=== PATIENT | male | born 1955 | race Two or more races ===

== ENCOUNTER → 2023-10-21 | Outpatient (REF) | payer MEDICARE | LOC: M SFHCDERM 13:03 | PROVIDERS: ATTEND Physician Assistant | DX: L82.1 Other seborrheic keratosis (principal) ==

== ENCOUNTER → 2023-11-05 | Outpatient (REF) | payer MEDICARE | LOC: M LAB REF 15:55 | PROVIDERS: ATTEND Surgery | DX: D17.21 Benign lipomatous neoplasm of skin and subcutaneous tissue of right arm (principal) ==

== ENCOUNTER → 2023-12-15 | Outpatient (REF) | payer MEDICARE | LOC: M LAB REF 15:11 | PROVIDERS: ATTEND Surgery | DX: D17.21 Benign lipomatous neoplasm of skin and subcutaneous tissue of right arm (principal) ==

== ENCOUNTER → 2024-04-13 | Outpatient (CLI) | payer MEDICARE ==
[~2024-04-13] MED LIST: PERC5TAB12 PO
== END ==
LOC: M RAD 16:07
PROVIDERS: ATTEND Physician Assistant
DX: M25.532 Pain in left wrist (principal); M79.645 Pain in left finger(s); S52.572A Other intraarticular fracture of lower end of left radius, initial encounter for closed fracture; S62.355A Nondisplaced fracture of shaft of fourth metacarpal bone, left hand, initial encounter for closed fracture; S62.353A Nondisplaced fracture of shaft of third metacarpal bone, left hand, initial encounter for closed fracture; X58.XXXS Exposure to other specified factors, sequela; Y92.9 Unspecified place or not applicable; Y93.9 Activity, unspecified; Y99.9 Unspecified external cause status

== ENCOUNTER → 2024-04-13 | Outpatient (CLI) | payer MEDICARE | LOC: M SOG 11:57 | PROVIDERS: ATTEND Physician Assistant | DX: M25.562 Pain in left knee (principal); M79.645 Pain in left finger(s); S52.512A Displaced fracture of left radial styloid process, initial encounter for closed fracture; S62.353A Nondisplaced fracture of shaft of third metacarpal bone, left hand, initial encounter for closed fracture; S62.355A Nondisplaced fracture of shaft of fourth metacarpal bone, left hand, initial encounter for closed fracture; X58.XXXA Exposure to other specified factors, initial encounter; Y92.9 Unspecified place or not applicable; Y93.9 Activity, unspecified; Y99.9 Unspecified external cause status; S52.572A Other intraarticular fracture of lower end of left radius, initial encounter for closed fracture ==

== ENCOUNTER → 2024-04-17 | Day surgery (SDC) | payer MEDICARE ==
[~2024-04-17] VITALS: Ht 182.9 cm; Wt 65.2 kg
[~2024-04-17] MED LIST changes: +ACETAMINOPHEN 1000MG 100ML IV BAG As Ordered ONE; +LIDOCAINE 2% 100MG/5ML SDV (FOR ANES.) As Ordered ONE; +MIDAZOLAM INJ 2MG/2ML VIAL As Ordered ONE; +MIDAZOLAM INJ 2MG/2ML VIAL IV PRN; +fentaNYL 100 MCG/2 ML INJECTION As Ordered ONE; +fentaNYL 100 MCG/2 ML INJECTION IV PRN; +propofoL 200 MG/20 ML VIAL As Ordered ONE
[2024-04-17] MEDS: ROPIvacaine 0.5% 30ML VIAL PN ONE (12:15)
[2024-04-17] MEDS: dexAMETHasone 10MG/1ML VIAL PRES.FREE PN ONE (12:15)
[2024-04-17] MEDS: EPINEPHrine INJ 1 MG/ML 1ML AMP PN ONE (12:15)
[2024-04-17] MEDS: LIDOCAINE 1% SDV 5ML VIAL PN ONE (12:15)
[2024-04-17] MEDS: MIDAZOLAM INJ 2MG/2ML VIAL IV PRN (12:59)
[2024-04-17] MEDS: fentaNYL 100 MCG/2 ML INJECTION IV PRN (12:59)
[2024-04-17] MEDS: ceFAZolin SOD 2 GM in IV 1 EA IV ONE (14:00)
[2024-04-17] MEDS: BACITRACIN OINTMENT 30GM TUBE As Ordered ONE (15:50)
[2024-04-17 17:12] VITALS: TEMP 98.2
[2024-04-17 17:20] VITALS: BP 113/70; O2SAT 96
== END | disposition home or self-care (01) ==
LOC: M SDC 11:12
PROVIDERS: ATTEND Orthopaedic Surgery Hand Surgery
DX: S52.572A Other intraarticular fracture of lower end of left radius, initial encounter for closed fracture (principal); S62.303A Unspecified fracture of third metacarpal bone, left hand, initial encounter for closed fracture; S62.305A Unspecified fracture of fourth metacarpal bone, left hand, initial encounter for closed fracture; W11.XXXA Fall on and from ladder, initial encounter; Y92.89 Other specified places as the place of occurrence of the external cause; Y93.9 Activity, unspecified; Y99.9 Unspecified external cause status
CPT/HCPCS: 25609; 76000; 93005; C1713; J0131; J0690; J2250; J3010

== ENCOUNTER → 2024-04-25 | Outpatient (CLI) | payer MEDICARE ==
[~2024-04-25] MED LIST changes: -ACETAMINOPHEN 1000MG 100ML IV BAG As Ordered ONE; -LIDOCAINE 2% 100MG/5ML SDV (FOR ANES.) As Ordered ONE; -MIDAZOLAM INJ 2MG/2ML VIAL As Ordered ONE; -MIDAZOLAM INJ 2MG/2ML VIAL IV PRN; -fentaNYL 100 MCG/2 ML INJECTION As Ordered ONE; -fentaNYL 100 MCG/2 ML INJECTION IV PRN; -propofoL 200 MG/20 ML VIAL As Ordered ONE
== END ==
LOC: M SOG 13:49
PROVIDERS: ATTEND Physician Assistant
DX: S52.502D Unspecified fracture of the lower end of left radius, subsequent encounter for closed fracture with routine healing (principal); S62.305D Unspecified fracture of fourth metacarpal bone, left hand, subsequent encounter for fracture with routine healing

== ENCOUNTER → 2024-05-16 | Outpatient (CLI) | payer MEDICARE | LOC: M SOG 08:03 | PROVIDERS: ATTEND Physician Assistant | DX: S52.572D Other intraarticular fracture of lower end of left radius, subsequent encounter for closed fracture with routine healing (principal); S62.305D Unspecified fracture of fourth metacarpal bone, left hand, subsequent encounter for fracture with routine healing ==

== ENCOUNTER → 2024-07-20 | Outpatient (CLI) | payer MEDICARE | LOC: M SOG 07:54 | PROVIDERS: ATTEND Physician Assistant | DX: S52.572D Other intraarticular fracture of lower end of left radius, subsequent encounter for closed fracture with routine healing (principal); S62.305D Unspecified fracture of fourth metacarpal bone, left hand, subsequent encounter for fracture with routine healing; Y93.9 Activity, unspecified; Y92.9 Unspecified place or not applicable ==